=== PATIENT | male | born 1935 | race Two or more races ===

== ENCOUNTER 2021-04-20 11:13 | Inpatient (IN) | payer OTHER ==
[~2021-04-20] VITALS: Ht 180.3 cm; Wt 83.9 kg
[2021-04-23] MEDS ORDERED: CIPRO500 MG PO (13:42)
[2021-04-23] MEDS ORDERED: INTESTINEX680 M2 PO (13:43)
[2021-04-23] MEDS ORDERED: FLAGYL500MG PO (13:43)
== END 2021-04-23 13:58 | disposition home or self-care (01) | DRG 395 ==
LOC: ER 11:13 → MEDI 19:15
PROVIDERS: ADMIT Internal Medicine; ATTEND Internal Medicine
DX: K62.89 Other specified diseases of anus and rectum (principal); Z20.822 Contact with and (suspected) exposure to COVID-19